=== PATIENT | female | born 1965 | race Caucasian/White ===

== ENCOUNTER → 2020-06-26 | Day surgery (SDC) | payer OTHER ==
[~2020-06-26] MED LIST: AUGMENTIN 875-1 EACH PO; GUAIFENESIN400 MG PO; MEDROL 4MG DOSEP4 MG PO; MULTI FOR HER1 EAC1 PO; SUDAFED30 MG PO; VITAMIN D310 MC1 PO; ZINC10 MG PO; ZYRTEC10 M3 PO
[2020-06-26 06:28] LABS: HCG (URINE) SCREEN NEGATIVE (NEGATIVE)
[2020-06-26 06:59] LABS: HCT 38.7 % (37.0-47.0); HGB 12.9 g/dl (12.5-16.0); MCH 30.5 pg (25.0-31.0); MCHC 33.3 g/dL (32.0-36.0); MCV 91.5 fL (78.0-100.0); MPV 9.7 fL (6.0-9.5); RBC 4.23 M/uL (4.20-5.40); RDW 12.6 % (11.5-14.0); WBC 7.5 K/uL (4.0-10.5)
== END | disposition home or self-care (01) ==
LOC: FAS 06:08
PROVIDERS: Legal Medicine
DX: G56.01 Carpal tunnel syndrome, right upper limb (principal); K21.9 Gastro-esophageal reflux disease without esophagitis; Z86.16 Personal history of COVID-19; Z88.1 Allergy status to other antibiotic agents; Z77.098 Contact with and (suspected) exposure to other hazardous, chiefly nonmedicinal, chemicals; Z88.2 Allergy status to sulfonamides; Z91.02 Food additives allergy status; Z98.890 Other specified postprocedural states; Z90.49 Acquired absence of other specified parts of digestive tract
CPT/HCPCS: 36415; 84703; J0690; J1100; J2250; J2405; J2704; J2795; J3010; J7120